=== PATIENT | female | born 1945 | race Caucasian/White ===

== ENCOUNTER → 2022-07-12 14:40 | Outpatient (CLI) | payer MEDICARE, BC, SELFPAY ==
--- NOTE | 2022-07-12 14:49 | MR_ITS ---
PROCEDURE INFORMATION: Exam: MR Lumbar Spine Without Contrast Exam date and time: 07/12/2022 3:18 PM Age: 77 years old Clinical indication: Low back pain; Prior surgery; Surgery date: 6+ months; Additional info: Low back pain. Falling frequently. Leg weakness. Low back pain. Bilateral leg pain, numbness and tingling. HX back surgery. TECHNIQUE: Imaging protocol: Magnetic resonance imaging of the lumbar spine without contrast. COMPARISON: No relevant prior studies available. FINDINGS: Bones/joints: Postoperative changes related to posterior interbody fusion and laminectomies at L4-L5 level. Susceptibility artifact from surgical hardware results in distortion of the adjacent structures. Grade 1 anterolisthesis of L4 over L5 is noted. Focal retrolisthesis of L3 over L4 and L2 over L3 likely degenerative. No marrow replacing process. Spinal cord: Conus and cauda equina nerve roots are unremarkable L1-L2: Diffuse disc bulge central, disc protrusion, and facet arthropathy produce mild spinal canal stenosis. There is mild bilateral neural foraminal narrowing. L2-L3: Diffuse disc bulge, central disc protrusion, and facet arthropathy produce mild spinal canal stenosis. There is mild bilateral neural foraminal narrowing. L3-L4: Diffuse disc bulge, central disc protrusion, and facet arthropathy produce moderate spinal canal stenosis. There is severe bilateral neural foraminal narrowing L4-L5: There is uncovering of the disc and facet arthropathy without significant spinal canal stenosis. There is mild bilateral neural foraminal narrowing L5-S1: Diffuse disc bulge and facet arthropathy without significant spinal canal stenoses. There is mild to moderate right, severe left neural foraminal narrowing Soft tissues: Unremarkable. IMPRESSION: Status post L4-L5 posterior interbody fusion. 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 Mild to moderate right, severe left neural foraminal narrowing at L5-S1 level.
== END ==
DX: M54.50 Low back pain, unspecified (principal)
CPT/HCPCS: 72148; 76376